=== PATIENT | male | born 1985 | race Caucasian/White ===

== ENCOUNTER 2019-07-04 21:42 | Emergency (ER) | payer OTHER ==
[2019-07-04 22:18] LABS: BLOOD UREA NITROGEN,BUN 13 mg/dL (7.0-18.0); CARBON DIOXIDE,CO2 20.7 mmol/L (21.0-32.0); CHLORIDE,CL 107 mmol/L (98-107); GLUCOSE RANDOM 112 mg/dL (74-106); POTASSIUM,K 3.8 mmol/L (3.5-5.1); SODIUM,NA 146 mmol/L (136-148)
--- NOTE | 2019-07-04 23:16 | CT ---
INDICATION: pain following striking head. no prior. CT HEAD WITHOUT CONTRAST TECHNIQUE: Multiple axial CT images were performed through the head without intravenous contrast administration. COMPARISON: No previous studies are currently available for comparison. FINDINGS: No acute intracranial hemorrhage is identified. No extra-axial collections are evident and there is no mass effect or midline shift. Ventricles are normal in size and configuration. Brain parenchyma appears normal with unremarkable willson-white differentiation. There chronic postoperative changes in the calvarium near the vertex and involving the parietal skull. Osseous structures are otherwise within normal limits and no fractures are seen. Included portions of the paranasal sinuses show mucosal thickening in the ethmoid and maxillary sinuses bilaterally. The mastoid air cells are normally aerated. IMPRESSION: No acute intracranial abnormality identified. KAMRAN KUHN MD [facility] Dictated by Jesus Kuhn MD @ 07/04/2019 11:13:47 PM Dictated by: Jesus Kuhn MD @ 07/04/2019 23:15:22 (Electronically Signed)
--- NOTE | 2019-07-04 23:27 | EDM.PDOC ---
ED HPI GENERAL MEDICAL PROBLEM - General Chief Complaint: Head Injury Stated Complaint: EMS ARRIVAL Time Seen by Provider: 07/04/19 23:20 Source of Information: Reports: Patient History Limitations: Reports: No Limitations - History of Present Illness Onset: Today Duration: Hour(s): Location: Reports: Head Quality: Reports: Ache Severity: Mild Improves with: Reports: None Worsens with: Reports: None Context: Reports: Activity Associated Symptoms: Reports: No Other Symptoms Treatments SEISMIC ENGINEER: Reports: Other Medication(s) Other Treatments SEISMIC ENGINEER: 10 mg haldol, 50 mg benadryl by EMS - Related Data Allergies Allergy/AdvReac Type Severity Reaction Status Date / Time Unable to Assess Allergy Unverified 07/04/19 22:03 Home Meds: Home Meds . [Unable to Verify Home Med List] 07/04/19 [History] Past Medical History - Past Health History Medical/Surgical History: Denies Medical/Surgical History Social & Family History - Tobacco Use Smoking Status *Q: Unknown Ever Smoked - Recreational Drug Use Recreational Drug Use Frequency: Patient Refuses To Answer ED ROS GENERAL - Review of Systems Review Of Systems: Comprehensive ROS is negative, except as noted in HPI. Constitutional: Reports: No Symptoms HEENT: Reports: No Symptoms Respiratory: Reports: No Symptoms Cardiovascular: Reports: No Symptoms Endocrine: Reports: No Symptoms GI/Abdominal: Reports: No Symptoms : Reports: No Symptoms Musculoskeletal: Reports: No Symptoms Skin: Reports: No Symptoms Neurological: Reports: No Symptoms Psychiatric: Reports: No Symptoms Hematologic/Lymphatic: Reports: No Symptoms Immunologic: Reports: No Symptoms ED EXAM, HEAD INJURY - Physical Exam Exam: Not Obtained Exam Limited By: No Limitations General Appearance: Alert, WD/WN, No Apparent Distress Head: Atraumatic, Normocephalic Ears: Normal External Exam, Normal Canal, Hearing Grossly Normal, Normal TMs Nose: Normal Inspection, Normal Mucousa Throat/Mouth: Normal Inspection, Normal Lips, Normal Teeth, Normal Oropharynx Neck: Non-Tender, Full Range of Motion Respiratory: No Respiratory Distress, Lungs Clear, Normal Breath Sounds, No Accessory Muscle Use, Chest Non-Tender Cardiovascular: Normal Peripheral Pulses, Regular Rate, Rhythm, No JVD GI/Abdominal Exam: Normal Bowel Sounds, Soft, Non-Tender, No Distention, No Abnormal Bruit (Male) Exam: Deferred Rectal (Males) Exam: Deferred Extremities: Normal Inspection, Normal Range of Motion Neurologic: No Motor/Sensory Deficits, Normal Mood/Affect, Oriented x 3 Skin: Normal Color, Warm/Dry Course - Vital Signs Last Recorded V/S: Last Vital Signs Temp 97.3 F 07/04/19 21:42 Pulse 77 07/04/19 22:10 Resp 20 07/04/19 22:10 BP 127/63 07/04/19 22:10 Pulse Ox 92 L 07/04/19 22:10 - Orders/Labs/Meds Orders: Active Orders 24 hr Category Date Time Status Initiate/Renew Violent-Self Destructive Restraints >/= Care 07/04/19 21:25 Ordered 19yo Q4H Labs: Laboratory Tests 07/04/19 07/04/19 Range/Units 21:30 21:30 WBC 13.69 H (4.0-11.0) K/uL RBC 4.93 (4.50-5.90) M/uL Hgb 16.7 (13.0-17.0) g/dL Hct 46.2 (38.0-50.0) % MCV 93.7 (80.0-98.0) fL MCH 33.9 H (27.0-32.0) pg MCHC 36.1 (31.0-37.0) g/dL RDW Std Deviation 44.4 (28.0-62.0) fl RDW Coeff of Vanessa 13 (11.0-15.0) % Plt Count 345 (150-400) K/uL MPV 10.40 (7.40-12.00) fL Neut % (Auto) 41.0 L (48.0-80.0) % Lymph % (Auto) 48.8 H (16.0-40.0) % Baldwin % (Auto) 6.3 (0.0-15.0) % Eos % (Auto) 3.2 (0.0-7.0) % Baso % (Auto) 0.7 (0.0-1.5) % Neut # (Auto) 5.6 (1.4-5.7) K/uL Lymph # (Auto) 6.7 H (0.6-2.4) K/uL Baldwin # (Auto) 0.9 H (0.0-0.8) K/uL Eos # (Auto) 0.4 (0.0-0.7) K/uL Baso # (Auto) 0.1 (0.0-0.1) K/uL Nucleated RBC % 0.0 /100WBC Nucleated RBCs # 0 K/uL Sodium 146 (136-148) mmol/L Potassium 3.8 (3.5-5.1) mmol/L Chloride 107 (98-107) mmol/L Carbon Dioxide 20.7 L (21.0-32.0) mmol/L BUN 13 (7.0-18.0) mg/dL Creatinine 1.0 (0.8-1.3) mg/dL Est Cr Clr Drug Dosing TNP Estimated GFR (MDRD) > 60.0 ml/min Glucose 112 H (74-106) mg/dL Calcium 9.1 (8.5-10.1) mg/dL Total Bilirubin 0.2 (0.2-1.0) mg/dL AST 231 H (15-37) IU/L ALT 278 H (14-63) IU/L Alkaline Phosphatase 83 (46-116) U/L Total Protein 8.3 H (6.4-8.2) g/dL Albumin 4.0 (3.4-5.0) g/dL Globulin 4.3 H (2.6-4.0) g/dL Albumin/Globulin Ratio 0.9 (0.9-1.6) Ethyl Alcohol 290 mg/dL Departure - Departure Time of Disposition: 23:26 Disposition: Home, Self-Care 01 Condition: Good Clinical Impression: Head trauma - Discharge Information Forms: ED Department Discharge Sepsis Event Note - Evaluation Sepsis Screening Result: No Definite Risk - Focused Exam Vital Signs: Vital Signs Temp Pulse Resp BP Pulse Ox 07/04/19 22:10 77 20 127/63 92 L 07/04/19 21:42 97.3 F 114 H 26 H 144/99 H 95 Date Exam was Performed: 07/04/19 Time Exam was Performed: 23:23 - My Orders Last 24 Hours: My Active Orders 07/04/19 21:25 Initiate/Renew Violent-Self Destructive Restraints >/=18yo Q4H - Assessment/Plan Last 24 Hours: My Active Orders 07/04/19 21:25 Initiate/Renew Violent-Self Destructive Restraints >/=18yo Q4H
== END 2019-07-05 00:08 | disposition home or self-care (01) ==
LOC: MW.ED 21:42
DX: S09.90XA Unspecified injury of head, initial encounter (principal); X58.XXXA Exposure to other specified factors, initial encounter; Y92.038 Other place in apartment as the place of occurrence of the external cause
CPT/HCPCS: 36415; 70450; 70450-26; 80053; 85025; 99284; 99284-25; G0480